=== PATIENT | male | born 1990 | race American Indian/Alaskan Native ===

== ENCOUNTER 2019-05-08 07:12 | Emergency (ER) | payer OTHER ==
[2019-05-08 07:57] VITALS: BP 139/95
--- NOTE | 2019-05-08 08:06 | Emergency Department Report ---
ED Chest Pain HPI - General Chief Complaint: Chest Pain Stated Complaint: CHEST PAIN Time Seen by Provider: 05/08/19 07:54 Source: patient Mode of arrival: Ambulatory Limitations: No Limitations - History of Present Illness Initial Comments: 28-year-old male with no past medical history presenting with complaints of intermittent chest pain located on the left side with associated shortness of breath ongoing for 1 week. Denies any recent travel, leg swelling, history of DVT or PE. No modifying factors. MD Complaint: chest pain -: Gradual, week(s) (1) Onset: other Pain Location: left chest Pain Radiation: none Severity: mild Quality: tightness Consistency: intermittent Improves With: nothing Worsens With: nothing re: denies: nausea, vomting, diaphoresis Other Symptoms: denies: cough, fever, syncope Aspirin use within the Past 7 Days: (0) No - Related Data Allergies Allergy/AdvReac Type Severity Reaction Status Date / Time No Known Allergies Allergy Unverified 05/08/19 07:33 Heart Score - HEART Score History: Moderately suspicious EKG: Significant ST-depression Age: < 45 Risk factors: No known risk factors Troponin: < normal limit HEART Score: 3 ED Review of Systems ROS: Stated complaint: CHEST PAIN Other details as noted in HPI Comment: All other systems reviewed and negative Respiratory: see HPI Cardiovascular: as per HPI ED Past Medical Hx - Past Medical History Previous Medical History?: No - Surgical History Past Surgical History?: No - Social History Smoking Status: Never Smoker Substance Use Type: None ED Physical Exam - General Limitations: No Limitations General appearance: alert, in no apparent distress - Head Head exam: Present: atraumatic, normocephalic - Eye Eye exam: Present: normal appearance - ENT ENT exam: Present: mucous membranes moist - Neck Neck exam: Present: normal inspection - Respiratory Respiratory exam: Present: normal lung sounds bilaterally. Absent: respiratory distress, wheezes - Cardiovascular Cardiovascular Exam: Present: regular rate, normal rhythm. Absent: systolic murmur, diastolic murmur, rubs, gallop - GI/Abdominal GI/Abdominal exam: Present: soft, normal bowel sounds. Absent: tenderness - Rectal Rectal exam: Present: deferred - Extremities Exam Extremities exam: Present: normal inspection - Back Exam Back exam: Present: normal inspection - Neurological Exam Neurological exam: Present: alert, oriented X3 - Psychiatric Psychiatric exam: Present: normal affect, normal mood - Skin Skin exam: Present: warm, dry, intact, normal color. Absent: rash ED Course Vital Signs 05/08/19 07:26 Temperature 98.3 F Pulse Rate 97 H Respiratory 18 Rate Blood Pressure 139/95 O2 Sat by Pulse 96 Oximetry BARON score - Baron Score Age > 65: (0) No Aspirin use within the Past 7 Days: (0) No 3 or more CAD Risk Factors: (0) No 2 or more Angina events in past 24 hrs: (0) No Known CAD with more than 50% Stenosis: (0) No Elevated Cardiac Markers: (0) No ST Deviation Greater than 0.5mm: (1) Yes BARON Score: 1 ED Medical Decision Making - Lab Data Result diagrams: 05/08/19 08:17 05/08/19 08:17 - EKG Data -: EKG Interpreted by Me EKG shows normal: sinus rhythm, axis, intervals Rate: normal - EKG Data When compared to previous EKG there are: previous EKG unavailable Interpretation: nonspecific ST-T wave luma 05/08/19 12:00 ST depression noted in 2 3 aVF V4 V5 V6, slight ST elevation in V2 - Radiology Data Radiology results: report reviewed Normal two-view chest - Medical Decision Making Patient presented with complaints of intermittent chest pain for the past week without any modifying factors. Exam is normal. Labs, chest x-ray pending. Patient has no risk factors, no early history and family, EKG showing ST depressions. Troponin is negative x2 and he is chest pain-free at this time. We will refer him to cardiology for close outpatient follow-up. Information was sent to [facility]. Patient understands need for close follow-up. Return precautions given. - Differential Diagnosis ACS, unlikely PE, chest wall pain, GERD Critical care attestation.: If time is entered above; I have spent that time in minutes in the direct care of this critically ill patient, excluding procedure time. ED Disposition Clinical Impression: Abnormal EKG Chest pain Qualifiers: Chest pain type: other chest pain Qualified Code(s): R07.89 - Other chest pain Disposition: DC-01 TO HOME OR SELFCARE Is pt being admited?: No Condition: Stable Instructions: Chest Pain (ED) Referrals: MERLIN AMADOR MD [Primary Care Provider] - 3-5 Days YISEL DUMONT MD [Staff Physician] - 24 Hours Time of Disposition: 12:06
--- NOTE | 2019-05-08 08:41 | XRay Report ---
CHEST 2 VIEWS INDICATION: Chest Pain. COMPARISON: None. FINDINGS: Support devices: None. Heart: Within normal limits. Pulmonary vasculature: Normal. Lungs/pleura: No acute air space or interstitial disease. No pneumothorax. Additional findings: None. IMPRESSION: 1. Normal chest. Signer Name: Zia Tavera MD Signed: 05/08/2019 8:36 AM Workstation Name: [id number]
[2019-05-08 08:43] LABS: Basophils # (Auto) 0.1 K/mm3 (0.0-0.1); Basophils % (Auto) 0.7 % (0.0-1.8); Eosinophils # (Auto) 0.2 K/mm3 (0.0-0.4); Eosinophils % (Auto) 2.4 % (0.0-4.3); Hemoglobin 16.3 gm/dl (11.8-15.2); Lymphocytes # (Auto) 3.2 K/mm3 (1.2-5.4); Lymphocytes % (Auto) 31.8 % (13.4-35.0); Mean Corpuscular HGB Conc 34 % (32-34); Mean Corpuscular Volume 89 fl (84-94); Monocytes # (Auto) 0.7 K/mm3 (0.0-0.8); Monocytes % (Auto) 7.4 % (0.0-7.3); Platelet Count 251 K/mm3 (140-440); Red Blood Count 5.42 M/mm3 (3.65-5.03); Red Cell Distribution Width 13.9 % (13.2-15.2)
[2019-05-08 09:07] LABS: Alanine Aminotransferase 56 units/L (7-56); BUN/Creatinine Ratio 9; Blood Urea Nitrogen 9 mg/dL (9-20); Calcium 10.1 mg/dL (8.4-10.2); Hemolysis Index 14
== END 2019-05-08 12:14 | disposition home or self-care (01) ==
LOC: ED 07:12
DX: R07.9 Chest pain, unspecified (principal); R94.31 Abnormal electrocardiogram [ECG] [EKG]
CPT/HCPCS: 36415; 71046; 80053; 84484; 85025; 93005; 93010

== ENCOUNTER 2020-11-15 09:17 | Emergency (ER) | payer BC, OTHER | END 2020-11-15 09:20 | disposition left against medical advice (07) | LOC: ED 09:17 | DX: M79.604 Pain in right leg (principal); M79.605 Pain in left leg; Z53.21 Procedure and treatment not carried out due to patient leaving prior to being seen by health care provider ==

== ENCOUNTER 2020-12-02 20:09 | Emergency (ER) | payer BC ==
[2020-12-02 21:06] VITALS: BP 136/79
== END 2020-12-02 22:29 | disposition left against medical advice (07) ==
LOC: ED 20:09
DX: M54.2 Cervicalgia (principal); Z53.21 Procedure and treatment not carried out due to patient leaving prior to being seen by health care provider